=== PATIENT | female | born 1945 | race Caucasian/White ===

== ENCOUNTER 2020-02-17 15:45 | Observation (INO) ==
[2020-02-17] MEDS ORDERED: Isovue-370 500 ML BOTTLE IVP ONE (16:56)
[2020-02-17 17:16] LABS: Hematocrit 41.3 % (35.3-44.9); Hemoglobin 13.4 g/dL (11.5-15.4); Mean Corpuscular HGB Conc 32.4 g/dL (31.6-35.5); Mean Corpuscular Hemoglobin 30.6 pg (28.0-33.3); Mean Corpuscular Volume 94.3 fL (83.0-100.0); Mean Platelet Volume 11.8 fL (9.4-12.4); Platelet Count 217 K/mcL (140-400); Red Blood Count 4.38 M/mcL (3.82-4.97); Red Cell Distribution Width 12.7 % (11.5-14.5); White Blood Count 8.6 K/mcL (4.3-11.1)
[2020-02-17 17:20] LABS: BUN/Creatinine Ratio 12 (6-26); Blood Urea Nitrogen 14 mg/dL (8-23); Calcium 9.7 mg/dL (8.6-10.3); Carbon Dioxide 28 mEq/L (23-29); Chloride 102 mEq/L (98-107); Glucose 103 mg/dL (70-105); Osmolality,Calculated 283 (280-300); Potassium 4.5 mEq/L (3.5-5.1); Sodium 136 mEq/L (136-145); Troponin I < 0.03 ng/mL (< 0.04); eGFR For African Americans 55 (> 60); eGFR For Non-African Americans 45 (> 60)
[2020-02-17 17:28] LABS: Bilirubin,Urine Negative (Negative); Blood,Urine Moderate (Negative); Clarity,Urine Turbid (Clear); Color,Urine Yellow (Yellow); Glucose,Urine (UA) Normal (Normal); Ketones,Urine Trace mg/dL (Negative); Leukocyte Esterase,Urine Negative (Negative); Nitrite,Urine Negative (Negative); Protein,Urine 100 mg/dL (Neg-Trace); RBC,Urine 0-3 per hpf (0-3); Specific Gravity,Urine 1.029 (1.010-1.025); Urobilinogen,Urine Normal (Normal); WBC,Urine 0-3 per hpf (0-3)
[2020-02-17] MEDS ORDERED: Aspirin 325 MG TABLET PO ONE (20:23)
[2020-02-17] MEDS ORDERED: Ondansetron 4 MG/2 ML VIAL IVP PRN (20:29)
[2020-02-17] MEDS ORDERED: Naloxone 0.4 MG/ML INJ IVP PRN (20:29)
[2020-02-17] MEDS ORDERED: Acetaminophen 325 MG TABLET PO PRN (20:29)
[2020-02-17] MEDS: *HR* Heparin 5,000 UNIT/ML VIAL SQ SCH (21:19)
[2020-02-17] MEDS ORDERED: Perflutren Lipid Microsphere 1.3 ML in 0.9 % Sodium Chloride 8.7 ML IVP PRN (21:53)
[2020-02-17] MEDS ORDERED: SOLIFENACIN SUCCINATE PO SCH (22:00)
[2020-02-18] MEDS: Cholecalciferol (D-3) 1,000 UNIT (25MCG) TABLET PO SCH ×2 (01:00→09:59)
[2020-02-18] MEDS: Metoprolol XL (24 HR) Succ 25 MG TAB.ER.24H PO SCH ×2 (01:00→10:00)
[2020-02-18 02:29] LABS: Basophils # 0.1 K/mcL (0.0-0.2); Basophils % 0.8 %; Eosinophils # 0.4 K/mcL (0.0-0.6); Eosinophils % 4.5 %; Hematocrit 39.2 % (35.3-44.9); Hemoglobin 12.8 g/dL (11.5-15.4); Immature Granulocytes % 0.3 % (0-4); Lymphocytes # 1.8 K/mcL (0.6-4.6); Lymphocytes % 23.5 %; Mean Corpuscular HGB Conc 32.7 g/dL (31.6-35.5); Mean Corpuscular Hemoglobin 30.3 pg (28.0-33.3); Mean Corpuscular Volume 92.7 fL (83.0-100.0); Mean Platelet Volume 11.7 fL (9.4-12.4); Monocytes # 0.5 K/mcL (0.0-1.3); Monocytes % 5.9 %; Neutrophils # 5.1 K/mcL (1.6-8.9); Platelet Count 206 K/mcL (140-400); Red Blood Count 4.23 M/mcL (3.82-4.97); Red Cell Distribution Width 12.8 % (11.5-14.5); White Blood Count 7.8 K/mcL (4.3-11.1)
[2020-02-18 02:52] LABS: Chol/HDL Ratio 3.3 (0-4.9); Magnesium 2.3 mg/dL (1.6-2.6); Phosphorous 2.9 mg/dL (2.7-4.5)
[2020-02-18 03:01] LABS: Thyroid Stimulating Hormone 3.577 mcIU/mL (0.340-5.600)
[2020-02-18 03:13] LABS: Folate > 22.3 ng/mL (3.0-16.0); Vitamin B12 211 pg/mL (250-1100)
[2020-02-18] MEDS: *HR* Heparin 5,000 UNIT/ML VIAL SQ SCH ×2 (06:10→13:09)
[2020-02-18 08:01] VITALS: BP 112/61
[2020-02-18] MEDS ORDERED: Aspirin Enteric Coated 81 MG Tablet PO SCH (10:00)
[2020-02-18 13:46] LABS: Estimated Average Glucose 131 mg/dl
[2020-02-19] MEDS ORDERED: NON-FORMULARY MEDICATION 1 EACH EACH (Rosuvastatin Calcium [Crestor] 5 MG) PO SCH (09:00)
[2020-02-19] MEDS ORDERED: Cyanocobalamin (B-12) 1,000 MCG TABLET PO SCH (09:00)
== END 2020-02-18 13:12 | disposition home or self-care (01) ==
LOC: 3BNU 15:45 → EMEROOARM 15:45 → 3BNU 20:33
PROVIDERS: ADMIT Family Medicine; ATTEND Family Medicine